=== PATIENT | male | born 1980 | race Two or more races ===

== ENCOUNTER 2018-10-31 10:31 | Emergency (ER) | payer SELFPAY ==
[~2018-10-31] VITALS: Wt 102.1 kg
[2018-10-31 10:34] VITALS: Wt 102.1 kg
[2018-10-31] MEDS ORDERED: SOD CHLORIDE 0.9% 1,000 ML IV STA (11:46)
[2018-10-31] MEDS ORDERED: ASPIRIN 325 MG TAB PO STA (11:46)
[2018-10-31] MEDS ORDERED: KETOROLAC 30 MG INJ IV STA (11:46)
[2018-10-31] MEDS ORDERED: IBUP800T48 PO (13:00)
--- NOTE | 2018-10-31 13:00 | ERD ---
ER Documentation Chief Complaint Chief Complaint CWP TODAY HPI This is a 38-year-old male with no past medical history presents to the emergency department complaining of left-sided chest wall pain. The patient indicates that the pain is exacerbated with touch. Indicates is been present and persistent for 48 hours. He states he has not had any recent fever shaking or chills. He denies any shortness of breath at rest or exertion. He denies any trauma. He is right-handed dominant. He states the pain is exacerbated whenever he lifts his left arm and does not radiate to the neck back or jaw. The pain is 6 out of 10 in intensity and did not take any analgesic medication prior to arrival. He denies any tobacco use. He has no family history of coronary artery disease. ROS All systems reviewed and are negative except as per history of present illness. Medications Home Meds No Active Prescriptions or Reported Meds Allergies Allergies: Coded Allergies: No Known Allergy (Unverified , 04/15/15) PMhx/Soc Medical and Surgical Hx: pt denies Medical Hx, pt denies Surgical Hx Hx Alcohol Use: Yes (Social, beer) Hx Substance Use: No Hx Tobacco Use: No Smoking Status: Never smoker Physical Exam Vitals Vital Signs Date Temp Pulse Resp B/P (MAP) Pulse Ox O2 O2 Flow FiO2 Time Delivery Rate 10/31/18 68 20 135/84 99 Room Air 12:20 (101) 10/31/18 98.5 71 18 137/83 99 10:34 (101) Physical Exam Constitutional:Well-developed. Well-nourished. HEENT:Normocephalic. Atraumatic.Pupils were equal round reactive to light. Moist mucous membranes.No tonsillar exudates. Neck: No nuchal rigidity. No lymphadenopathy. No posterior cervical spine tend erness or step-offs. Respiratory: Not using accessory muscles of respiration.Lungs were clear to aus cultation bilaterally. No rhonchi. No rales. No wheezing. Cardiovascular: Regular rate regular rhythm.No murmurs. No rubs were appreciated.S1, S2 normal. Distal pulses are palpable 2+ bilaterally. Left- sided reproducible chest wall tenderness with no crepitus no ecchymosis no flail chest GI: Abdomen was soft. Nontender. Non Distended. No pulsatile abdominal masses or bruits. No rebound. No guarding. Bowel sounds were present and normal. Muscle skeletal: Full range of motion of both the upper and lower extremities bilaterally.Normal muscle tone.No assymetrical calf tenderness or swelling. Skin: No petechia, no purpura. No lesions on the palms or the soles of the feet. No maculopapular rash. NEURO: Patient was alert, awake, orientated x3.No facial droop. Gait observed and normal with no ataxia.Speech had regular rate and rhythm. No focal neurological deficits. Result Diagram: 10/31/18 1210 Results 24 hrs Laboratory Tests Test 10/31/18 12:10 White Blood Count 7.6 10^3/ul Red Blood Count 5.04 10^6/ul Hemoglobin 15.8 g/dl Hematocrit 45.2 % Mean Corpuscular Volume 89.7 fl Mean Corpuscular Hemoglobin 31.3 pg Mean Corpuscular Hemoglobin Concent 35.0 g/dl Red Cell Distribution Width 11.7 % Platelet Count 304 10^3/UL Mean Platelet Volume 9.6 fl Immature Granulocytes % 0.800 % Neutrophils % 55.2 % Lymphocytes % 34.1 % Monocytes % 7.2 % Eosinophils % 2.0 % Basophils % 0.7 % Nucleated Red Blood Cells % 0.0 /100WBC Immature Granulocytes # 0.060 10^3/ul Neutrophils # 4.2 10^3/ul Lymphocytes # 2.6 10^3/ul Monocytes # 0.6 10^3/ul Eosinophils # 0.2 10^3/ul Basophils # 0.1 10^3/ul Nucleated Red Blood Cells # 0.0 10^3/ul Prothrombin Time 11.8 Sec Prothrombin Time Ratio 0.9 INR International Normalized Ratio 0.86 Activated Partial Thromboplast Time 27.7 Sec Urine Color STRAW Urine Clarity CLEAR Urine pH 8.0 Urine Specific [place] 1.010 Urine Ketones NEGATIVE mg/dL Urine Nitrite NEGATIVE mg/dL Urine Bilirubin NEGATIVE mg/dL Urine Urobilinogen NEGATIVE mg/dL Urine Leukocyte Esterase NEGATIVE Merissa/ul Urine Hemoglobin NEGATIVE mg/dL Urine Glucose NEGATIVE mg/dL Urine Total Protein NEGATIVE mg/dl Urine Opiates Screen Negative Urine Barbiturates Negative Urine Amphetamines Screen Negative Urine Benzodiazepines Screen Negative Urine Cocaine Screen Negative Urine Cannabinoids Negative Current Medications Medications Dose Sig/Simon Start Time Status Last (Trade) Ordered Route PRN Stop Time Admin Dose Reason Admin Sodium 1,000 ml @ Q1H STAT 10/31/18 DC 10/31/18 Chloride 1,000 mls/hr IV 11:46 12:15 10/31/18 12:45 Aspirin 325 mg ONCE STAT 10/31/18 DC 10/31/18 (Aspirin) PO 11:46 12:15 10/31/18 11:49 Ketorolac 30 mg ONCE STAT 10/31/18 DC 10/31/18 Tromethamine IV 11:46 12:16 (Toradol) 10/31/18 11:49 Procedures/MDM The patient presented to the emergency department complaining of chest pain. My clinical evaluation and workup was to distinguish minor causes of chest pain from acute life threatening cardiopulmonary causes such as myocardial infarction, pulmonary embolism, aortic dissection, esophageal rupture, cardiac tamponade, The patient was placed on a monitoring coordinator, continuous pulse oximetry and IV access established by nursing staff. The patient was given aspirin. For analgesia control the patient was given IV Toradol. 12 Lead EKG tracing ordered and reviewed by myself showed: Normal sinus rhythm of 67 bpm and no arrhythmia. LA interval normal. QRS duration normal. ST segment elevation in all leads with concave upstroke consistent with benign early repolarization no reciprocal changes No ST segment depression. No changes consistent with acute ischemia. The patients chest pain was reproduced by palpation and horizontal flexion of the arms. It was my clinical impression that the pain was a result of inflammation of the skin and subcutaneous structures of the chest wall versus myocardial ischemia. I felt the patient had low-risk chest pain and could th erefore be safely discharged with close follow-up. Departure Diagnosis: Primary Impression: Costochondritis, acute Condition: IRENE Hdez MD Oct 31, 2018 13:00
[2018-10-31 13:28] VITALS: BP 125/86; PULSE 69; RESP 19
== END 2018-10-31 13:34 | disposition home or self-care (01) ==
LOC: E/R 10:31
DX: M94.0 Chondrocostal junction syndrome [Tietze] (principal)
CPT/HCPCS: 71045; 80053; 80307; 81003; 82550; 82553; 83690; 83880; 84484; 85025; 85610; 85730; 93005; 96374; 99285; J1885; J7030